=== PATIENT | female | born 1950 | race Caucasian/White ===

== ENCOUNTER 2016-05-27 15:05 | Outpatient (CLI) | payer MEDICAID ==
[~2016-05-27] VITALS: Ht 157.5 cm; Wt 68.2 kg
[2016-05-27 15:10] VITALS: BP 194/88; PULSE 75; RESP 18; Ht 157.5 cm; Wt 68.2 kg
[2016-05-27] MEDS ORDERED: LISI10TA2 PO (15:27)
[2016-05-27] MEDS ORDERED: TRAM-40 PO (15:27)
[2016-05-27] MEDS ORDERED: NOVMIX SC ×2 (15:27)
--- NOTE | 2016-05-27 15:55 | CONS ---
Date/Time of Note Date/Time of Note DATE: 05/27/16 TIME: 15:09 Assessment/Plan Assessment/Plan Additional Assessment/Plan [facility] SUBSEQUENT OUTPATIENT CONSULTATION NOTE IMPRESSION AND PLAN: A very pleasant 65-year-old lady well known to me from her Apr 2016 admission to [facility], with significant past medical history of HTN and DM without evidence of adequate outpatient medical care vs non-compliance (complicated issue with both personal and socioeconomic roots) and 2 prior surgeries that started 8 yrs ago for reported primary umbilical hernia in [place], followed by recurrence and repeat hernia repair 5 years ago at [facility] (no mesh per patient and family), who can likely benefit from elective operative intervention of her hernia. Major barrier is her continued insistence with non-compliance. Still without a primary care physician. I was very clear to patient and family in emphasizing the importance of getting adequate medical care prior to surgery to minimize her surgical risk. With above assessment, I've recommended the following for today: 1. F/u with PCP (asked office to assist with getting information to patient and family) 2. PCP to address HTN, DM, bilateral lower extremity swelling and other medical issues in anticipation of upcoming surgery 3. Get patient authorization to release records from [facility] for prior two operations 4. Schedule patient for hernia repair after above is done Thank you again for allowing us to participate in the care of this very pleasant lady and her wonderful family. If there are any questions, please feel free to call me at area code [phone]. Total visit time: 45 minutes of which more than half was spent in [id number] discussion with the patient, as well as coordination of care between multiple physicians and providers. Please note: Spelling or grammatical errors in this note are likely due to EHR/ dictation systems and are not reflective of patient care quality. Also please note that the dictation timestamp of this note does not necessarily reflected time of the visit for this service. PLACE OF SERVICE: [facility] DATE OF CONSULTATION: 05/27/16 HISTORY OF PRESENT ILLNESS: Very pleasant 65-year-old lady well known to me from her Apr 2016 admission to [facility], with significant past medical history of HTN and DM without evidence of adequate outpatient medical care vs non-compliance (complicated issue with both personal and socioeconomic roots) and 2 prior surgeries that started 8 yrs ago for reported primary umbilical hernia in [place], followed by recurrence and repeat hernia repair 5 years ago at [facility] (no mesh per patient and family) . Initial admission was for a 1-2-week history of feeling progressively unwell and bowel distention. No diarrhea or fever, but + nausea and vomiting, and no abdominal pain. CT showed dilated small bowel with possible bowel incarceration in the complex hernia. White blood cell normal. No fevers in ED and vital signs normal. She was managed non-operatively and discharged home with instructions to follow up with PCP for medical management and with us afterwards for elective hernia repair. She did no see a PCP. Here without any other major complaints other than bilateral lower extremity swelling. No changes in hearing or vision, difficulty with breathing or swallowing, prior issues with heart or lungs system, no problems with new skin rashes, joint pain , musculoskeletal disease, neurologic, psychiatric, or psychologic problems. PMHx: 1. DM 2. HTN 3. BLE swelling (new per patient/family) 4. Umbilical hernia as above PSHx: 1. S/p hernia repair x2 as above ALL: NKDA MEDS: None SOCIAL HISTORY: The patient lives with family; does not report any alcohol, tobacco, or drug use. Daughter was with patient. FAMILY HISTORY: No major medical, surgical or malignancy related issues that are noted by the patient, family or noted in the chart. REVIEW OF SYSTEMS: No pertinent positives or pertinent negatives in a complete 14 point review of systems other than mentioned elsewhere in this note PHYSICAL EXAMINATION GENERAL: The patient appears to be a very pleasant lady of descent, appearing stated age, BMI was 17 May 2017, and otherwise sitting in a chair comfortably and in no acute distress. VITAL SIGNS: AVSS (see below) HEENT: Head is normocephalic and atraumatic. Extraocular muscles and hearing are grossly intact bilaterally and symmetrically. Sclerae are nonicteric. Oral cavity is clear and oral mucosa appeared to be pink and moist. There is relatively poor dentition with several missing teeth. NECK: Supple. There is no lymphadenopathy or JVD. There is no submental, submandibular, or supraclavicular lymphadenopathy. CHEST: Chest rises symmetrically with each breath and breathing is comfortable. There are no audible wheezes, rales, or rhonchi on the gross exam. Pulse is regular and palpable on the left wrist. Carotid pulses are palpable bilaterally and symmetrically in the neck. Lower extremities contain no pitting edema bilaterally and symmetrically. Capillary refill is normal. ABDOMEN: Soft, nondistended, and non-tender to palpation. There are no organomegaly, splenomegaly, or hepatomegaly, evidence of ascites, evidence of caput medusae, or engorged subcutaneous veins. There are no peritoneal signs or guarding. Two large ventral hernias periumbilical, non-tender and soft w/o any skin changes. SKIN: Skin otherwise appears to be pink and feels warm to touch. NEUROLOGIC: Patient is awake, alert, and follows commands appropriately. IMAGING: Pertinent images were reviewed above. Note that I personally reviewed these images and I generally agree with their overall reported findings. CT CT Abdomen+Pelvis w IV Con 20:36:15 PROCEDURE: CT Abdomen and Pelvis with contrast. CLINICAL INDICATION: Abdominal pain and hernia. TECHNIQUE: Multiple contiguous axial CT images of the abdomen and pelvis were obtained following the administration of 100 cc of Isovue 300. Coronal and sagittal reconstructions were also performed. CTDIvol (mGy): 3.76, 11.86; Total Exam DLP (mGy-cm): 665.87. COMPARISON: None. FINDINGS: Limited imaging of the lower thorax is unremarkable. The liver and spleen are homogeneous in enhancement. The gallbladder, pancreas and adrenal glands are unremarkable. The kidneys are symmetric in size and enhancement. Mild bilateral symmetric hydronephrosis is present. There are no ureteral stones. The abdominal aorta is normal in caliber. There is no periaortic / retroperitoneal lymphadenopathy. The stomach is mildly distended. There is marked fluid-filled distension of the proximal small intestines with the largest loops measuring as much as 5.3 cm in greatest diameter. Scattered air-fluid levels are present. Air pockets are not displaced peripherally within the lumen. There is no definite pneumatosis. There is no portal venous gas. There is no definite pneumoperitoneum. There is a large wide mouth ventral abdominal wall hernia measuring approximately 10.8 cm in greatest diameter. Focal transition points are seen along the lateral aspects of the abdominal wall defect. Dilated loops of intestines are also present within the hernia sac with marked architectural distortion of the herniated bowel and mesentery. Marked edema is seen within the hernia sac as well as free fluid. There is also submucosal edema within scattered loops of herniated small bowel. The bladder is distended. The uterus and adnexa are unremarkable. There is no free pelvic fluid. There is no pelvic sidewall or inguinal lymphadenopathy. Diffuse subcutaneous edema is present. Degenerative changes of the spine are observed. IMPRESSION: Large complex wide-mouth ventral abdominal wall hernia with associated high- grade small bowel obstruction. Incarceration is likely present. In addition, there is marked mesenteric and submucosal edema within the hernia sac. There is no definite evidence of pneumatosis or pneumoperitoneum at this time. There is no evidence of portal venous gas. RPTAT: HLST Last 24 Hours Basic Metabolic Panel: Hematology: Sodium: 136 (04/28/16) Hgb: 11.2 (04/28/16) Potassium: 3.5 (04/28/16) HgbA1c: ------ Phosphorus: ------ WBC: 5.9 (04/28/16) Mg: ------ Plt: 216 (04/28/16) BUN: 19 (04/28/16) INR: ------ Creatinine: 0.63 (04/28/16) Creatinine Clearance: ------ ABS Baso: 0.0 (04/28/16) ABS Eos: 0.1 (04/28/16) ABS Lymph: 1.7 (04/28/16) ABS Spencer: 0.6 (04/28/16) ABS Neut: 3.5 (04/28/16) Albumin: 2.4 (04/28/16) Alkphos: 86 (04/28/16) Nikita's Test: Yes (04/27/16) ALT: 8 (04/28/16) AST: 7 (04/28/16) Baso%: 0.5 (04/28/16) BE: 0.1 (04/27/16) Beta-Hydroxybutyrate Lvl: 2.01 (04/27/16) Bili Total: 1.0 (04/28/16) Calcium: 8.2 (04/28/16) Chloride: 103 (04/28/16) CO2: 25 (04/28/16) COHb: 0.7 (04/27/16) Corrected pCO2: 36.4 (04/27/16) Corrected pH: 7.437 (04/27/16) eGFR Afr/Am: >90 (04/28/16) eGFR NonAfr/Am: >90 (04/28/16) Eos%: 2.1 (04/28/16) FiO2: 21.0 (04/27/16) Globulin: 3.0 (04/28/16) Glucose Level: 205 (04/28/16) Glucose POC: 124 () HCO3: 24.0 (04/27/16) Hct: 33.1 (04/28/16) Lymph%: 28.0 (04/28/16) MCH: 29.8 (04/28/16) MCHC: 33.8 (04/28/16) MCV: 88.1 (04/28/16) MetHb: 0.4 (04/27/16) Spencer%: 10.8 (04/28/16) MPV: 10.5 (04/28/16) Neut%: 58.6 (04/28/16) O2Hb: 95.0 (04/27/16) Patient Temp: 37.00 (04/27/16) pCO2.: 36.4 (04/27/16) pH Bld Gas: 7.437 (04/27/16) pO2 Art: 84.2 (04/27/16) Protein, Total: 5.4 (04/28/16) RBC: 3.76 (04/28/16) RDW: 13.0 (04/28/16) RDW-SD: 40.3 (04/28/16) Site of Draw: Left Radial (04/27/16) sO2: 96.7 (04/27/16 ) Specimen Type: BLDA (04/27/16) tHb: 12.0 (04/27/16) Consultation Date/Type/Reason Admit Date/Time Initial Consult Date ELENA KNIGHT M.D. May 27, 2016 15:55
== END 2016-05-27 17:00 | disposition home or self-care (01) ==
LOC: HPC 15:05
PROVIDERS: ATTEND Transplant Surgery
DX: K43.9 Ventral hernia without obstruction or gangrene (principal); I10 Essential (primary) hypertension; E11.9 Type 2 diabetes mellitus without complications
CPT/HCPCS: G0463